=== PATIENT | female | born 1975 | race Caucasian/White ===

== ENCOUNTER 2022-03-16 13:50 | Inpatient (IN) | payer MEDICAID ==
[~2022-03-16] VITALS: Ht 160 cm; Wt 73.5 kg
--- NOTE | 2022-03-16 14:10 | NUR ---
RECEIVED PT 47 YRS FEMALE CAME BY AI FOR NEW oncent of TOM during transfer to [facility] HD catheter on RT subclevian
--- NOTE | 2022-03-16 14:10 | NUR ---
PT HX TRACH conected to me[place] vent sitting TV 550 AC 16/MIN FIO2 40% PEEP 5 Tolorated will
--- NOTE | 2022-03-16 14:15 | NUR ---
INcerted mayda dominguez 20 blood drow and sent to lab
--- NOTE | 2022-03-16 14:30 | NUR ---
COVID SWAB SENT TO LAB
--- NOTE | 2022-03-16 14:35 | NUR ---
MRSA SENT TO LAB
--- NOTE | 2022-03-16 14:40 | NUR ---
SUCTION DONE thick with secration
[2022-03-16 14:54] LABS: BASOPHILS % (AUTO) 0.4 % (0.0-2.0); EOSINOPHILS % (AUTO) 4.9 % (0.0-6.0); HEMATOCRIT 33 % (33-45); HEMOGLOBIN 10.9 g/dL (11.5-14.8); LYMPHOCYTES # (AUTO) 1.2 K/uL (0.8-4.8); LYMPHOCYTES % (AUTO) 15.2 % (20.0-44.0); MEAN CORPUSCULAR HGB CONC 33 g/dl (31.0-36.0); MEAN CORPUSCULAR VOLUME 89 fL (82-100); MONOCYTES # (AUTO) 0.5 K/uL (0.1-1.30); MONOCYTES % (AUTO) 6.7 % (2.0-12.0); NEUTROPHILS # (AUTO) 5.8 K/uL (1.8-8.9); NEUTROPHILS % (AUTO) 72.8 % (43.0-81.0); PLATELET COUNT (AUTO) 144 K/uL (150-450); RED BLOOD CELL COUNT(AUTO) 3.69 MIL/uL (4.0-5.2)
[2022-03-16] MEDS ORDERED: LEVETIRACETAM (500MG) 1,000 MG in IV NS 0.9% 100 ML IV ONE (15:00)
[2022-03-16] MEDS ORDERED: LEVETIRACETAM (500MG) 1,000 MG in IV NS 0.9% 100 ML IV SCH (15:00)
--- NOTE | 2022-03-16 15:00 | NUR ---
TO CT SCAN OF head accompany by RT
[2022-03-16 15:11] LABS: ALANINE AMINOTRANSFERASE 25 U/L (12-78); ALBUMIN 3.9 g/dL (3.4-5.0); ALCOHOL, BLOOD < 3 mg/dL (0-0); ALKALINE PHOSPHATASE 303 U/L (46-116); ASPARTATE AMINOTRANSFERASE 18 U/L (15-37); BILIRUBIN,DIRECT 0.2 mg/dL (0.0-0.2); BILIRUBIN,TOTAL 0.5 mg/dL (0.2-1.0); CALCIUM, SERUM 9.4 mg/dL (8.5-10.1); CARBON DIOXIDE 23 mmol/L (21-32); CHLORIDE 94 mmol/L (98-107); CREATININE 4.9 mg/dL (0.6-1.3); GLUCOSE 182 mg/dL (74-106); POTASSIUM 5.9 mmol/L (3.5-5.1); SODIUM SERUM 133 mmol/L (136-145); TOTAL PROTEIN, SERUM 7.7 g/dL (6.4-8.2)
--- NOTE | 2022-03-16 15:30 | NUR ---
URINE DRUGE SENT TO LAB
[2022-03-16 15:47] LABS: UREA NITROGEN, BLOOD 87 mg/dL (7-18)
[2022-03-16] MEDS ORDERED: INSULIN REGULAR, HUMAN 100 UNIT/ML 10 ML VIAL IV ONE (16:00)
[2022-03-16] MEDS ORDERED: IV NS 0.9% 1,000 ML BAG IV ONE (16:00)
[2022-03-16] MEDS ORDERED: DEXTROSE 50%-WATER 50 ML DISP.SYRIN IV ONE (16:00)
[2022-03-16] MEDS ORDERED: CALCIUM CHLORIDE 1,000 MG/10 ML DISP.SYRIN IV ONE (16:00)
[2022-03-16] MEDS ORDERED: CALCIUM CHLORIDE 1,000 MG/10 ML DISP.SYRIN ONE (16:31)
[2022-03-16] MEDS ORDERED: DEXTROSE 50%-WATER 50 ML DISP.SYRIN ONE (16:31)
[2022-03-16] MEDS ORDERED: INSULIN REGULAR, HUMAN 100 UNIT/ML 10 ML VIAL ONE (16:32)
--- NOTE | 2022-03-16 16:54 | NUR ---
NO ACTIVE SZ AT THIS TIME CONTENUE monitering pt
[2022-03-16] MEDS ORDERED: INSU100V7 SQ (17:01)
[2022-03-16] MEDS ORDERED: POLY17PO4 GT (17:01)
[2022-03-16] MEDS ORDERED: IPRA3AMP23 IH (17:01)
[2022-03-16] MEDS ORDERED: NUT.237L67 GT (17:01)
[2022-03-16] MEDS ORDERED: INSU100V27 SQ (17:01)
[2022-03-16] MEDS ORDERED: CLON0.1T GT (17:01)
[2022-03-16] MEDS ORDERED: BISA10SU11 RC (17:01)
[2022-03-16] MEDS ORDERED: SODI1TAB66 GT (17:01)
[2022-03-16] MEDS ORDERED: FERR300L GT (17:01)
[2022-03-16] MEDS ORDERED: SODI1POW44 GT (17:01)
[2022-03-16] MEDS ORDERED: DOCU50LI GT (17:01)
[2022-03-16] MEDS ORDERED: ATOR40TA GT (17:01)
[2022-03-16] MEDS ORDERED: DILT30TA14 GT (17:01)
[2022-03-16] MEDS ORDERED: TOBR40VI2 HHN (17:01)
[2022-03-16] MEDS ORDERED: LANS30CA56 GT (17:13)
[2022-03-16] MEDS ORDERED: HYDR100T27 GT (17:13)
[2022-03-16] MEDS ORDERED: FOLI0.8T2 GT (17:13)
[2022-03-16] MEDS ORDERED: DOXY100C2 GT (17:13)
[2022-03-16] MEDS ORDERED: IPRA0.2S9 IH (17:13)
[2022-03-16] MEDS ORDERED: NITR0.4T48 SL (17:13)
[2022-03-16] MEDS ORDERED: MIDO5TAB4 GT (17:13)
[2022-03-16] MEDS ORDERED: NA P133E RC (17:13)
[2022-03-16] MEDS ORDERED: CARV25TA GT (17:13)
[2022-03-16] MEDS ORDERED: LEVO500T90 GT (17:13)
[2022-03-16] MEDS ORDERED: SPIR25TA6 GT (17:13)
[2022-03-16] MEDS ORDERED: AMLO-213 GT (17:13)
[2022-03-16] MEDS ORDERED: ACET-868 GT (17:13)
--- NOTE | 2022-03-16 18:51 | NUR ---
DR. RETANA NOTEFYED ABOUT BP 178/83MMHG wating for PT [id number] CALL Back
[2022-03-16] MEDS ORDERED: LORAZEPAM INJ 2 MG/ML VIAL IV PRN (19:00)
[2022-03-16] MEDS ORDERED: MAGNESIUM HYDROXIDE 30 ML UDC PO PRN (19:00)
[2022-03-16] MEDS ORDERED: NA PHOS,M-B/NA PHOS,DI-BA 1 EA ENEMA RC PRN (19:00)
[2022-03-16] MEDS ORDERED: ONDANSETRON HCL/PF 4 MG/2 ML VIAL IVP PRN (19:00)
[2022-03-16] MEDS ORDERED: DILTIAZEM HCL 30 MG TABLET GT PRN (19:00)
[2022-03-16] MEDS ORDERED: MIDODRINE HCL (5MG) 5 MG TABLET GT PRN (19:00)
[2022-03-16] MEDS ORDERED: NITROGLYCERIN 0.4 MG/TAB BOTTLE SL PRN (19:00)
[2022-03-16] MEDS ORDERED: DOCUSATE SODIUM LIQ 100 MG/10 ML UDC GT PRN (19:00)
[2022-03-16] MEDS ORDERED: BISACODYL SUPP (10 MG) 10 MG/SUPP.RECT SUPP.RECT RC PRN (19:00)
[2022-03-16] MEDS ORDERED: DEXTROSE 50%-WATER 50 ML DISP.SYRIN IV PRN (19:00)
[2022-03-16] MEDS ORDERED: MAG HYDROX/AL HYDROX/SIMETH 30 ML UDC PO PRN (19:00)
[2022-03-16] MEDS ORDERED: Z GUARD REMEDY 4 OZ OINT TP PRN (19:00)
--- NOTE | 2022-03-16 19:35 | NUR ---
HAND OFF IRON MITCHELL
--- NOTE | 2022-03-16 19:50 | NUR ---
RECEIVED REPORT FROM TARA MITCHELL
--- NOTE | 2022-03-16 19:56 | NUR ---
REPORT GIVEN TO GREGORIA
--- NOTE | 2022-03-16 20:23 | NUR ---
CHANNEL PROCESS SUPERVISOR NOTE RECEIVED PT FROM ER VIA ANDREA, PT OBTUNDED, [facility], TOLERATING SETTINGS WELL, NO S/S OF ACUTE DISTRESS, TELE MONITOR READING SR IN THE 80'S, IV ACCESS ON LH #20, INTACT AND PATENT, G TUBE INTACT AND PATENT, 60ML OF RESIDUAL NOTED, NO CURRENT FEEDING. SKIN INTACT, NO WOUNDS OR BRUISES NOTED, BO CATHETER DRAINING CLEAR YELLOW URINE, ALL SAFETY MEASURE BED LOWEST LOCKED POSITION, BED LIGHT WITHIN REACH, WILL CONTINUE TO MONITOR THROUGH OUT SHIFT.
[2022-03-16 20:30] VITALS: BP 175/77
[2022-03-16] MEDS: PANTOPRAZOLE 40 MG TABLET.DR PO SCH ×2 (21:00→22:02)
[2022-03-16] MEDS: CARVEDILOL 12.5 MG TABLET GT SCH (21:00)
[2022-03-16] MEDS: CLONIDINE HCL 0.1 MG TABLET GT SCH (21:00)
[2022-03-16] MEDS: ALBUTEROL FS 2.5 MG/3 ML VIAL.NEB NEB SCH ×2 (21:00→23:08)
--- NOTE | 2022-03-16 21:00 | NUR ---
RN NOTE PATIENT HAS AN ORDER FOR STAT DIALYSIS. BOTH BP MEDS WERE HELD. CATAPRES AND COREG. PROTONIX WAS HELD DUE TO IT BEING A DELAYED RELEASE CAN NOT BE CRUSHED. PATIENT IS NPO, G TUBE FEEDING.
--- NOTE | 2022-03-16 21:56 | NUR ---
RT NOTE WILL ADMINISTER NEBULIZED TX AT SCHEDULED FREQUENCY. NO RESPIRATORY DISTRESS NOTED.
[2022-03-16] MEDS: LEVETIRACETAM (500MG) 500 MG in IV NS 0.9% 100 ML IV SCH (21:58)
[2022-03-16] MEDS: ATORVASTATIN 40 MG TABLET GT SCH (21:59)
[2022-03-16] MEDS: BLOOD SUGAR DIAGNOSTIC 1 EACH STRIP VI SCH (22:20)
[2022-03-16] MEDS: *INSULIN REGULAR(HUMULIN R)HUM 100 UNIT/ML VIAL SQ PRN (22:26)
--- NOTE | 2022-03-16 23:00 | NUR ---
2300 called [facility] Radha Congregate to obtain family member phone number for consent for Hemodialysis, spoke with Bernardo he said he will fax facesheet.
--- NOTE | 2022-03-16 23:15 | NUR ---
4548 PAULA Willson called facility again to follow up on facesheet for family contact number, she spoke with Bernardo again, he said he e faxed document and will re fax again.
--- NOTE | 2022-03-16 23:25 | NUR ---
2330 Called patient's Chris Holcomb at [phone] and obtained Hemodialysis consent via [place] speaking nurse.
[2022-03-17] VITALS: BP 194/95
[2022-03-17] MEDS ORDERED: SODIUM CHLORIDE 1000 MG TABLET GT SCH
--- NOTE | 2022-03-17 | NUR ---
RN NOTE HELD PATIENTS HYDRALAZINE 50MG. PATIENT CURRENTLY RECEIVING DIALYSIS.
[2022-03-17] MEDS: IPRATROPIUM NEB FS 0.5 MG/2.5 ML AMPUL.NEB IH SCH ×5 (01:46→20:06)
--- NOTE | 2022-03-17 02:00 | NUR ---
RN NOTE DIALYSIS REMOVED 2 LITERS
[2022-03-17] MEDS: ALBUTEROL FS 2.5 MG/3 ML VIAL.NEB NEB SCH ×2 (03:15→08:05)
[2022-03-17 04:00] VITALS: BP 188/82
[2022-03-17] MEDS: CLONIDINE HCL 0.1 MG TABLET GT SCH ×3 (04:41→21:47)
--- NOTE | 2022-03-17 04:50 | NUR ---
RN NOTE DR. GONZALEZ ORDERED A PRN HYDRALAZINE 10MG. FOR PT 188/82 BP
[2022-03-17] MEDS: hydrALAZINE HCL IV 20 MG VIAL IV PRN (05:15)
--- NOTE | 2022-03-17 06:46 | NUR ---
AVIATION TECHNICIAN AIRCRAFT CLOSING NOTE PT ASLEEP IN BED, EASILY AROUSABLE, PT OBTUNDED, ON MECH VENT, TOLERATING SETTINGS WELL, NO S/S OF ACUTE DISTRESS, TELE MONITOR READING SR HR 93, IV ACCESS ON RH #20, INTACT AND PATENT, S/L, G TUBE INTACT AND PATENT, NO RESIDUAL NOTED, NO CURRENT FEEDING. BO CATHETER DRAINING CLEAR YELLOW URINE, ALL DUE MEDS GIVEN. ALL SAFETY MEASURE BED LOWEST LOCKED POSITION, BED LIGHT WITHIN REACH, WILL ENDORSE TO MORNING SHIFT FOR CONTINUOUS CARE
[2022-03-17 07:06] LABS: CALCIUM, SERUM 9.9 mg/dL (8.5-10.1); CREATININE 3.5 mg/dL (0.6-1.3); MAGNESIUM 2.6 mg/dL (1.8-2.4); PHOSPHORUS 4.6 mg/dL (2.5-4.9); POTASSIUM 4.9 mmol/L (3.5-5.1)
[2022-03-17 07:12] LABS: BASOPHILS % (AUTO) 0.2 % (0.0-2.0); EOSINOPHILS % (AUTO) 0.7 % (0.0-6.0); HEMATOCRIT 31 % (33-45); HEMOGLOBIN 10.3 g/dL (11.5-14.8); LYMPHOCYTES # (AUTO) 0.8 K/uL (0.8-4.8); LYMPHOCYTES % (AUTO) 9.4 % (20.0-44.0); MEAN CORPUSCULAR HGB CONC 33 g/dl (31.0-36.0); MEAN CORPUSCULAR VOLUME 90 fL (82-100); MONOCYTES # (AUTO) 0.5 K/uL (0.1-1.30); MONOCYTES % (AUTO) 6.1 % (2.0-12.0); NEUTROPHILS # (AUTO) 6.7 K/uL (1.8-8.9); NEUTROPHILS % (AUTO) 83.6 % (43.0-81.0); PLATELET COUNT (AUTO) 143 K/uL (150-450); RED BLOOD CELL COUNT(AUTO) 3.47 MIL/uL (4.0-5.2)
[2022-03-17 08:00] VITALS: BP 173/78
--- NOTE | 2022-03-17 08:00 | NUR ---
SHAKE OUT WORKER OPENING NOTE PT IN BED, EASILY AROUSABLE, OBTUNDED, ON MECH VENT, TOLERATING SETTINGS WELL, NO S/S OF ACUTE DISTRESS, TELE MONITOR READING SR HR 96, IV ACCESS ON RH #20, INTACT AND PATENT, S/L, G TUBE INTACT AND PATENT, NO RESIDUAL NOTED, NO CURRENT FEEDING. BO CATHETER DRAINING CLEAR YELLOW URINE. ALL SAFETY MEASURE BED LOWEST LOCKED POSITION, BED LIGHT WITHIN REACH, WILL CONTINUE TO MONITOR THROUGHOUT SHIFT.
[2022-03-17] MEDS: BLOOD SUGAR DIAGNOSTIC 1 EACH STRIP VI SCH ×4 (08:19→22:11)
[2022-03-17] MEDS: LEVETIRACETAM (500MG) 500 MG in IV NS 0.9% 100 ML IV SCH ×2 (08:20→21:46)
[2022-03-17] MEDS: POLYETHYLENE GLYCOL 3350 17 GM POWD.PACK GT SCH (08:20)
[2022-03-17] MEDS: AMLODIPINE BESYLATE 10 MG TABLET GT SCH (08:21)
[2022-03-17] MEDS: CARVEDILOL 12.5 MG TABLET GT SCH ×2 (08:21→21:51)
[2022-03-17] MEDS: ACETAMINOPHEN 325 MG TABLET PO PRN ×2 (08:22→17:18)
[2022-03-17] MEDS: VIT B CMPLX 3/FA/VIT C/BIOTIN 1 TAB TABLET GT SCH (08:22)
[2022-03-17] MEDS: SPIRONOLACTONE 25 MG TABLET GT SCH (08:22)
[2022-03-17] MEDS: FERROUS SULFATE UDC 300 MG/5 ML UDC GT SCH ×2 (08:22→17:15)
[2022-03-17] MEDS: NEUTRA PHOS 1 POWD.PACKET GT SCH (08:22)
[2022-03-17] MEDS: hydrALAZINE HCL 50 MG TABLET GT SCH ×4 (08:23→17:16)
[2022-03-17] MEDS: PANTOPRAZOLE 40 MG TABLET.DR PO SCH ×2 (08:25→21:00)
[2022-03-17] MEDS ORDERED: ALBUTEROL FS 2.5 MG/3 ML VIAL.NEB NEB SCH (10:30)
[2022-03-17 12:00] VITALS: BP 163/83
[2022-03-17] MEDS: NEPRO 1,000 ML BOTTLE GT SCH (13:41)
[2022-03-17] MEDS: *INSULIN REGULAR(HUMULIN R)HUM 100 UNIT/ML VIAL SQ PRN ×2 (14:01→22:13)
[2022-03-17] MEDS: ALBUTEROL HALF STRENGTH 1.25 MG/3 ML VIAL.NEB NEB SCH ×2 (14:21→20:06)
[2022-03-17 16:00] VITALS: BP 149/74
[2022-03-17] MEDS: HEPARIN SODIUM, PORCINE 5000 UNITS/1 ML VIAL SQ SCH (17:18)
[2022-03-17 20:00] VITALS: BP 161/86
--- NOTE | 2022-03-17 20:30 | NUR ---
RESIDENT DIRECTOR CLOSING NOTE PT IN BED, OBTUNDED, ON MECH VENT, TOLERATING SETTINGS WELL, NO S/S OF ACUTE DISTRESS OR SOB. TELE MONITOR READING SR HR 84, IV ACCESS ON RH #20, INTACT AND PATENT, S/L, G TUBE INTACT AND PATENT, NO RESIDUAL NOTED, CURRENTLY ON NEPRO AT 55CC/HR, TOLERATING WELL. BO CATHETER DRAINING CLEAR YELLOW URINE. ALL SAFETY MEASURE BED LOWEST LOCKED POSITION, BED LIGHT WITHIN REACH, WILL ENDORSE CONTINUITY OF CARE TO PATIENT PORTAL CONCIERGE
[2022-03-17] MEDS: ATORVASTATIN 40 MG TABLET GT SCH (21:47)
[2022-03-17] MEDS: PANTOPRAZOLE 40 MG/PACK PACK GT SCH (22:44)
--- NOTE | 2022-03-17 23:17 | NUR ---
CONSTRUCTION DRILLER OPENING NOTE RECEIVED PT ASLEEP IN BED, EASILY AROUSABLE, PT OBTUNDED, ON MECH VENT, TOLERATING SETTINGS WELL, NO S/S OF ACUTE DISTRESS, TELE MONITOR READING SR HR 77, IV ACCESS ON RH #20, INTACT AND PATENT, S/L, G TUBE INTACT AND PATENT, NO RESIDUAL NOTED, RUNNING NEPHRO@55ML/HR. BO CATHETER DRAINING CLEAR YELLOW URINE. PT HAS COOLING MEASURES IN PLACE. ALL SAFETY MEASURE BED LOWEST LOCKED POSITION, BED LIGHT WITHIN REACH, WILL CONTINUE TO MONITOR THROUGHOUT SHIFT.
[2022-03-18] VITALS (7 sets, daily range): BP systolic 147–177; BP diastolic 68–86
--- NOTE | 2022-03-18 00:50 | NUR ---
LILA RN NOTE PATIENTS HR HAS DROPPED DOWN TO 38 A FEW TIMES AND GOES BACK TO HIGH 40'S - LOW 50'S. DR GONZALEZ SAID IF IT HAPPENED AGAIN GET A STAT EKG AND TEXT THE RESULTS Addendum: 03/18/22 at 0059 by GREGORIA WARNER RN WRONG PATIENT
[2022-03-18] MEDS: IPRATROPIUM NEB FS 0.5 MG/2.5 ML AMPUL.NEB IH SCH ×4 (01:46→20:19)
[2022-03-18] MEDS: ALBUTEROL HALF STRENGTH 1.25 MG/3 ML VIAL.NEB NEB SCH ×4 (01:46→20:19)
[2022-03-18] MEDS: CLONIDINE HCL 0.1 MG TABLET GT SCH ×3 (05:00→21:13)
--- NOTE | 2022-03-18 05:45 | NUR ---
TERMINAL OPERATIONS MANAGER NOTE CATAPRES WAS NOT ADMINISTERED DUE TO PATIENT CURRENTLY GETTING DIALYSIS
--- NOTE | 2022-03-18 07:01 | NUR ---
INDEXER CLOSING NOTE PT ASLEEP IN BED, EASILY AROUSABLE, PT OBTUNDED, ON MECH VENT, TOLERATING SETTINGS WELL, NO S/S OF ACUTE DISTRESS, TELE MONITOR READING SR HR 90'S. IV ACCESS ON RH #20, INTACT AND PATENT, S/L, G TUBE INTACT AND PATENT, BO CATHETER DRAINING CLEAR YELLOW URINE, PATIENT CURRENTLY RECEIVING DIALYSIS. ALL DUE MEDS GIVEN. ALL SAFETY MEASURE BED LOWEST LOCKED POSITION, BED LIGHT WITHIN REACH, WILL ENDORSE TO MORNING SHIFT FOR CONTINUOUS CARE
--- NOTE | 2022-03-18 07:12 | NUR ---
HOSPITALITY HOUSEKEEPER OPENING NOTE RECEIVED PT ASLEEP IN BED, EASILY AROUSABLE, PT OBTUNDED, ON MECH VENT, TOLERATING SETTINGS WELL, NO S/S OF ACUTE DISTRESS, TELE MONITOR READING SR HR 77, IV ACCESS ON RH #20, INTACT AND PATENT, S/L, G TUBE INTACT AND PATENT, NO RESIDUAL NOTED, RUNNING NEPHRO@55ML/HR. BO CATHETER DRAINING CLEAR YELLOW URINE. CURRENTLY RECEIVING HEMODIALYSIS ALL SAFETY MEASURE BED LOWEST LOCKED POSITION, BED LIGHT WITHIN REACH, WILL CONTINUE TO MONITOR THROUGHOUT SHIFT.
[2022-03-18] MEDS: BLOOD SUGAR DIAGNOSTIC 1 EACH STRIP VI SCH ×4 (07:45→21:24)
[2022-03-18] MEDS: INSULIN REGULAR, HUMAN 100 UNIT/ML 3 ML VIAL SQ PRN ×3 (07:48→18:05)
[2022-03-18] MEDS: SPIRONOLACTONE 25 MG TABLET GT SCH (08:57)
[2022-03-18] MEDS: LEVETIRACETAM (500MG) 500 MG in IV NS 0.9% 100 ML IV SCH (08:57)
[2022-03-18] MEDS: FERROUS SULFATE UDC 300 MG/5 ML UDC GT SCH ×2 (08:57→17:28)
[2022-03-18] MEDS: POLYETHYLENE GLYCOL 3350 17 GM POWD.PACK GT SCH (08:58)
[2022-03-18] MEDS: CARVEDILOL 12.5 MG TABLET GT SCH ×2 (08:58→21:14)
[2022-03-18] MEDS: hydrALAZINE HCL 50 MG TABLET GT SCH ×3 (08:58→17:27)
[2022-03-18] MEDS: AMLODIPINE BESYLATE 10 MG TABLET GT SCH (08:59)
[2022-03-18] MEDS: HEPARIN SODIUM, PORCINE 5000 UNITS/1 ML VIAL SQ SCH ×2 (09:01→17:28)
[2022-03-18] MEDS: NEUTRA PHOS 1 POWD.PACKET GT SCH (09:04)
[2022-03-18] MEDS: VIT B CMPLX 3/FA/VIT C/BIOTIN 1 TAB TABLET GT SCH (09:05)
[2022-03-18] MEDS: PANTOPRAZOLE 40 MG/PACK PACK GT SCH ×2 (09:06→21:13)
--- NOTE | 2022-03-18 18:25 | NUR ---
RN CLOSING NOTES PT IS RESTING IN BED, PT IS OBTUNDED. PT ON ORDERED VENT SETTINGS SATING AT 99%. BO INTACT AND DRAINING. GT FEEDING RUNNING AT 55ML/HR. IV ACCESS NOTED AT R HAND 20 G. ALL SAFETY MEASURES IN PLACE, FALL AND SEIZURE PRECAUTIONS IN PLACE, WILL ENDORSE TO WATER CONSERVATIONIST RN FOR AFUA.
--- NOTE | 2022-03-18 19:10 | NUR ---
RN NOTES RECEIVED PT FOR CONTINUITY OF CARE. PATIENT A/OX0 IN NO S/SX OF ACUTE DISTRESS AT THIS TIME; CURRENTLY ON MECHANICAL VENT; SETTING PRESCRIBED, WITH 02 SAT >95% AT THIS TIME. WITH IV ACCESS ON L HAND #24 AND R HAND #20 BOTH PATENT, INTACT AND FLUSHING WELL. GTUBE FEEDING RUNNING PRESCRIBED. WILL ENSURE SAFETY MEASURES WITHIN THE SHIFT. PATIENT BED ALARM IS ON. HEAD OF BED ELEVATED. BED IS LOCKED, IN LOWEST POSITION AND SIDE RAILS UP. CALL LIGHT WITHIN REACH OF THE PATIENT.WILL CONTINUE TO MONITOR AND REASSESS FOR ANY CHANGES AND WILL CARRY OUT ANY ONGOING AND ACTIVE MD ORDER.
[2022-03-18] MEDS: hydrALAZINE HCL IV 20 MG VIAL IV PRN (19:45)
[2022-03-18] MEDS: ACETAMINOPHEN 325 MG TABLET PO PRN (19:45)
[2022-03-18] MEDS: ATORVASTATIN 40 MG TABLET GT SCH (21:12)
[2022-03-18] MEDS: LEVETIRACETAM SOL (5 ML) 100 MG/ML UDC GT SCH (21:13)
[2022-03-18] MEDS: *INSULIN REGULAR(HUMULIN R)HUM 100 UNIT/ML VIAL SQ PRN (21:39)
[2022-03-19] VITALS: BP 158/69
[2022-03-19] MEDS: ALBUTEROL HALF STRENGTH 1.25 MG/3 ML VIAL.NEB NEB SCH ×4 (01:57→20:04)
[2022-03-19] MEDS: IPRATROPIUM NEB FS 0.5 MG/2.5 ML AMPUL.NEB IH SCH ×4 (01:57→20:04)
[2022-03-19 04:00] VITALS: BP 124/69
--- NOTE | 2022-03-19 04:00 | NUR ---
RN NOTES PATIENT REMAINED TO BE IN NO SIGNS OF ACUTE RESPIRATORY DISTRESS , VITAL SIGNS STABLE AT THIS TIME. REGULAR TURNING AND REPOSITIONING DONE Q2H AND SUCTIONING RENDERED. AM PATIENT CARE DONE. WILL CONTINUE TO MONITOR AND REASSESS FOR ANY CHANGES THROUGHOUT THE SHIFT.
[2022-03-19] MEDS: CLONIDINE HCL 0.1 MG TABLET GT SCH ×3 (04:31→21:50)
--- NOTE | 2022-03-19 06:35 | NUR ---
RN CLOSING NOTE: PATIENT REMAINS IN ROOM IN NO SIGNS OF RESPIRATORY DISTRESS, PATIENT STILL ON MECH VENT; SETTINGS PRESCRIBED;TOLERATING WELL SATURATING @ >95% SP02. SAFETY MEASURES IMPLEMENTED, BED IN LOWEST POSITION, LOCKED, SIDE RAILS UP, CALL LIGHT WITHIN REACH. ALL NEEDS AND ORDERS ADDRESSED DURING THE SHIFT. IV ACCESS MAINTAINED INTACT, SECURED AND FLUSHING WELL. ALL DUE MEDS GIVEN ORDERED & SCHEDULED ; PATIENT TOLERATED WELL. PATIENT KEPT CLEAN AND COMFORTABLE WITHIN THE SHIFT. PATIENT ENDORSED TO INCOMING SHIFT RN WITH STABLE VITAL SIGN AND FOR CONTINUITY OF CARE.
--- NOTE | 2022-03-19 07:28 | NUR ---
ADMITTING CLERK OPENING NOTES: RECEIVED PATIENT IN BED ASLEEP BUT EASILY AROUSES TO VOICE AND TOUCH. PATIENT IS OBTUNDED AND IS ON MECHANICAL VENT SHILEY #8 WITH VENT SETTING FOLLOWS: AC 16, TV 550, FI02 30%, PEEP 5. BREATHING EVEN AND UNLABORED WITH OXYGEN SATURATION OF 100%. ON SR ON TELE MONITOR READING WITH HR OF 61. PATIENT HAS SALINE LOCK ON RIGHT HAND #20, INTACT AND PATENT, FLUSHES WELL. G TUBE INTACT AND PATENT, IN PLACE, NO RESIDUAL NOTED, WITH NEPHRO RUNNING @ 55ML/HR X [address] IN PL[address], DRAINING WITH CLEAR YELLOW URINE. BED LOCKED AND IN LOWEST LOCKED POSITION, CALL LIGHT WITHIN REACH, HOB KEPT ELEVATED. ALL SAFETY MEASURES IN PLACE. WILL CONTINUE TO MONITOR THROUGHOUT SHIFT.
[2022-03-19] MEDS: BLOOD SUGAR DIAGNOSTIC 1 EACH STRIP VI SCH ×4 (07:50→21:57)
[2022-03-19 08:00] VITALS: BP 141/71
[2022-03-19] MEDS: INSULIN REGULAR, HUMAN 100 UNIT/ML 3 ML VIAL SQ PRN ×3 (08:13→17:33)
[2022-03-19] MEDS: CARVEDILOL 12.5 MG TABLET GT SCH ×2 (09:12→21:49)
[2022-03-19] MEDS: PANTOPRAZOLE 40 MG/PACK PACK GT SCH ×2 (09:13→21:49)
[2022-03-19] MEDS: NEUTRA PHOS 1 POWD.PACKET GT SCH (09:13)
[2022-03-19] MEDS: VIT B CMPLX 3/FA/VIT C/BIOTIN 1 TAB TABLET GT SCH (09:13)
[2022-03-19] MEDS: SPIRONOLACTONE 25 MG TABLET GT SCH (09:13)
[2022-03-19] MEDS: hydrALAZINE HCL 50 MG TABLET GT SCH ×3 (09:14→17:44)
[2022-03-19] MEDS: FERROUS SULFATE UDC 300 MG/5 ML UDC GT SCH ×2 (09:14→17:45)
[2022-03-19] MEDS: LEVETIRACETAM SOL (5 ML) 100 MG/ML UDC GT SCH ×2 (09:14→21:49)
[2022-03-19] MEDS: AMLODIPINE BESYLATE 10 MG TABLET GT SCH (09:14)
[2022-03-19] MEDS: POLYETHYLENE GLYCOL 3350 17 GM POWD.PACK GT SCH (09:15)
[2022-03-19] MEDS: HEPARIN SODIUM, PORCINE 5000 UNITS/1 ML VIAL SQ SCH ×2 (09:15→17:46)
[2022-03-19] MEDS ORDERED: LEVE100S GT (10:10)
[2022-03-19 12:00] VITALS: BP 136/61
[2022-03-19 16:00] VITALS: BP 146/69
--- NOTE | 2022-03-19 18:52 | NUR ---
TEL;E RN CLOSING NOTES: PATIENT IN BED ASLEEP BUT EASILY AROUSES TO VOICE AND TOUCH. PATIENT IS OBTUNDED BUT ABLE TO FOLLOW WITH HER EYES WHEN CALLED BY NAME. PATIENT IS ON MECHANICAL VENT SHILEY #8 WITH VENT SETTING FOLLOWS: AC 16, TV 550, FI02 30%, PEEP 5. NO RESPIRATORY DISTRESS NOTED WITH OXYGEN SATURATION OF 100%. ON SR ON TELE MONITOR READING WITH HR OF 75. PATIENT HAS SALINE LOCKS ON RIGHT HAND #20, AND LEFT HAND # 22, BOTH INTACT, PATENT, FLUSHES WELL. G TUBE INTACT, PATENT, IN PLACE, NO RESIDUAL NOTED, WITH NEPHRO RUNNING @ 55ML/HR AT THIS TIME. BO CATHETER IN PLACE, EMPTIED 225 ML OF CLEAR YELLOW URINE. BED LOCKED AND IN LOWEST LOCKED POSITION, CALL LIGHT WITHIN REACH, HOB KEPT ELEVATED. ALL NEEDS MET AND ANTICIPATED. WILL ENDORSE TO NEXT SHIFT NURSE FOR CONTINUOUS MONITORING.
[2022-03-19] MEDS: NEPRO 1,000 ML BOTTLE GT SCH (18:59)
--- NOTE | 2022-03-19 19:15 | NUR ---
RN NOTES RECEIVED PT FOR CONTINUITY OF CARE. PATIENT A/OX0 IN NO S/SX OF ACUTE DISTRESS AT THIS TIME; CURRENTLY ON MECHANICAL VENT; SETTING PRESCRIBED, WITH 02 SAT >95% AT THIS TIME. WITH IV ACCESS ON L HAND #24 AND R HAND #20 BOTH PATENT, INTACT AND FLUSHING WELL. GTUBE FEEDING RUNNING PRESCRIBED. ALSO HAS R CW HD CATH SECURED AND INTACT. WILL ENSURE SAFETY MEASURES WITHIN THE SHIFT. PATIENT BED ALARM IS ON. HEAD OF BED ELEVATED. BED IS LOCKED, IN LOWEST POSITION AND SIDE RAILS UP. CALL LIGHT WITHIN REACH OF THE PATIENT.WILL CONTINUE TO MONITOR AND REASSESS FOR ANY CHANGES AND WILL CARRY OUT ANY ONGOING AND ACTIVE MD ORDER.
[2022-03-19 20:00] VITALS: BP 152/69
[2022-03-19] MEDS: ATORVASTATIN 40 MG TABLET GT SCH (21:54)
[2022-03-19] MEDS: *INSULIN REGULAR(HUMULIN R)HUM 100 UNIT/ML VIAL SQ PRN (21:58)
[2022-03-20] VITALS: BP 149/64
[2022-03-20] MEDS: ALBUTEROL HALF STRENGTH 1.25 MG/3 ML VIAL.NEB NEB SCH ×3 (00:59→13:35)
[2022-03-20] MEDS: IPRATROPIUM NEB FS 0.5 MG/2.5 ML AMPUL.NEB IH SCH ×3 (00:59→13:35)
[2022-03-20 04:00] VITALS: BP 125/68
[2022-03-20] MEDS: CLONIDINE HCL 0.1 MG TABLET GT SCH ×2 (04:42→12:24)
[2022-03-20 08:00] VITALS: BP 162/74
--- NOTE | 2022-03-20 08:08 | NUR ---
RN OPENING NOTE PATIENT RECEIVED IN BED, OBTUNDED, ABLE TO RESPONDS PHYSICAL STIMULI. IN NO ACUTE DISTRESS NOTED. RESPIRATORY EVEN AND UNLABORED ON VENTILATOR. RUNNING NEPHRO AND DISCONNECTED SCHEDULE, WILL RECONNECT AT 1400. SKIN IS WARM TO TOUCH, KEEP CLEAN/DRY. KEPT ELEVATED HOB FOR ENSURE AIRWAY AND ASPIRATION PRECAUTION, ALSO LOWEST POSITION OF THE BED, S/R UP X 2, BED ALARM IS ON AT ALL THE TIMES. ALL SAFETY PRECAUTION APPLIED. CALL LIGHT WITHIN REACH, WILL CONTINUE TO MONITOR.
[2022-03-20] MEDS: AMLODIPINE BESYLATE 10 MG TABLET GT SCH (09:00)
[2022-03-20] MEDS: SPIRONOLACTONE 25 MG TABLET GT SCH (09:00)
[2022-03-20] MEDS: CARVEDILOL 12.5 MG TABLET GT SCH (09:00)
[2022-03-20] MEDS: hydrALAZINE HCL 50 MG TABLET GT SCH ×2 (09:00→12:24)
[2022-03-20] MEDS: PANTOPRAZOLE 40 MG/PACK PACK GT SCH (09:09)
[2022-03-20] MEDS: BLOOD SUGAR DIAGNOSTIC 1 EACH STRIP VI SCH ×2 (09:09→12:18)
[2022-03-20] MEDS: VIT B CMPLX 3/FA/VIT C/BIOTIN 1 TAB TABLET GT SCH (09:09)
[2022-03-20] MEDS: FERROUS SULFATE UDC 300 MG/5 ML UDC GT SCH (09:09)
[2022-03-20] MEDS: POLYETHYLENE GLYCOL 3350 17 GM POWD.PACK GT SCH (09:10)
[2022-03-20] MEDS: LEVETIRACETAM SOL (5 ML) 100 MG/ML UDC GT SCH (09:10)
[2022-03-20] MEDS: HEPARIN SODIUM, PORCINE 5000 UNITS/1 ML VIAL SQ SCH (09:13)
[2022-03-20] MEDS: INSULIN REGULAR, HUMAN 100 UNIT/ML 3 ML VIAL SQ PRN ×2 (09:23→12:21)
--- NOTE | 2022-03-20 10:00 | NUR ---
PATIENT D/C TO [facility], GIVEN REPORT WU/TRAFFIC AGENT INCLUDE PIC UP TIME, AND MEDICATION. INFORMED THAT PATIENT LEAVING AFTER HD ALSO.
[2022-03-20 12:00] VITALS: BP 163/76
[2022-03-20] MEDS: NEUTRA PHOS 1 POWD.PACKET GT SCH (12:20)
[2022-03-20 12:24] VITALS: BP 172/74
--- NOTE | 2022-03-20 16:02 | NUR ---
3 data processing equipment repairer PICKED UP PATIENT, GIVEN REPORT INCLUDE 2Ls OUT PUT FROM HD AND ADMINISTERED HYDRALAZINE AND CLONIDINE AFTER HD ALSO. PATIENT IN STABLE CONDITION.
== END 2022-03-20 16:33 | DRG 53 ==
LOC: ER 14:08 → TELE1 19:56
PROVIDERS: ADMIT Internal Medicine; ATTEND Internal Medicine
PROC: 5A1945Z Respiratory Ventilation, 24-96 Consecutive Hours (ICD-10-PCS; principal; 2022-03-16)
PROC: 5A1D70Z Performance of Urinary Filtration, Intermittent, Less than 6 Hours Per Day (ICD-10-PCS; 2022-03-16)
DX: R56.9 Unspecified convulsions (principal); G93.41 Metabolic encephalopathy; J96.10 Chronic respiratory failure, unspecified whether with hypoxia or hypercapnia; I12.0 Hypertensive chronic kidney disease with stage 5 chronic kidney disease or end stage renal disease; E22.2 Syndrome of inappropriate secretion of antidiuretic hormone; G90.8 Other disorders of autonomic nervous system; D63.8 Anemia in other chronic diseases classified elsewhere; N18.6 End stage renal disease; Z86.73 Personal history of transient ischemic attack (TIA), and cerebral infarction without residual deficits; Z99.11 Dependence on respirator [ventilator] status; Z93.0 Tracheostomy status; Z99.2 Dependence on renal dialysis; Z20.822 Contact with and (suspected) exposure to COVID-19; E11.22 Type 2 diabetes mellitus with diabetic chronic kidney disease; Z93.1 Gastrostomy status; Z91.040 Latex allergy status; Z79.51 Long term (current) use of inhaled steroids; Z79.4 Long term (current) use of insulin; Z79.899 Other long term (current) drug therapy; E87.5 Hyperkalemia; G93.89 Other specified disorders of brain; R13.10 Dysphagia, unspecified; E78.5 Hyperlipidemia, unspecified
CPT/HCPCS: 31720; 36415; 70450-TC; 71045-TC; 80048-TC; 80076-TC; 82962-TC; 83735-TC; 84100-TC; 84703-TC; 85025-TC; 86706; 87081-TC; 87340; 90935-TC; 94003-TC; 94760-TC; 94762-TC; 94799-TC; 95819-TC; A7526; C9803; G0378; G0480; J0360; J1644; J1815; J1953; J3490; J7030; J7050; J7070

== ENCOUNTER 2023-01-11 13:47 | Inpatient (IN) | payer MEDICAID, OTHER ==
[~2023-01-11] VITALS: Ht 162.6 cm; Wt 64.0 kg
[~2023-01-11 13:47] MED LIST: ACET-868 GT; AMLO-213 GT; ATOR40TA GT; BISA10SU11 RC; CARV25TA GT; CLON0.1T GT; DILT30TA14 GT; DOCU50LI GT; DOXY100C2 GT; FERR300L GT; FOLI0.8T2 GT; HYDR100T27 GT; INSU100V27 SQ; INSU100V7 SQ; IPRA0.2S9 IH; IPRA3AMP23 IH; LANS30CA56 GT; LEVE100S GT; LEVO500T90 GT; MIDO5TAB4 GT; NA P133E RC; NITR0.4T48 SL; NUT.237L67 GT; POLY17PO4 GT; SODI1POW44 GT; SODI1TAB66 GT; SPIR25TA6 GT; TOBR40VI2 HHN
--- NOTE | 2023-01-11 14:04 | NUR ---
RITA SENT [facility]. VITAL WNL.
--- NOTE | 2023-01-11 14:30 | NUR ---
RITA SENT [facility]. A/OX0 BREATHING IS EVEN AND UNLABORED. VENT TRACH FROM SNF. SNF STATES PT HAD A UPPE RESPIRATORY INFECTION AND IS CURRENTLY TAKING ABX FOR INFECTION. SIDERAILS UP, BED LOCKED IN LOWEST POSITION.
--- NOTE | 2023-01-11 14:45 | NUR ---
BLOOD DRAWN AND SENT TO LAB.
[2023-01-11 15:03] LABS: BASOPHILS # (AUTO) 0.1 K/uL (0.0-0.2); BASOPHILS % (AUTO) 0.7 % (0.0-2.0); EOSINOPHILS % (AUTO) 0.7 % (0.0-6.0); HEMATOCRIT 29 % (33-45); HEMOGLOBIN 9.5 g/dL (11.5-14.8); LYMPHOCYTES # (AUTO) 0.6 K/uL (0.8-4.8); LYMPHOCYTES % (AUTO) 4.7 % (20.0-44.0); MEAN CORPUSCULAR HGB CONC 33 g/dl (31.0-36.0); MEAN CORPUSCULAR VOLUME 96 fL (82-100); MONOCYTES # (AUTO) 0.8 K/uL (0.1-1.30); MONOCYTES % (AUTO) 6.8 % (2.0-12.0); NEUTROPHILS # (AUTO) 10.5 K/uL (1.8-8.9); NEUTROPHILS % (AUTO) 87.1 % (43.0-81.0); PLATELET COUNT (AUTO) 192 K/uL (150-450); RED BLOOD CELL COUNT(AUTO) 3.01 MIL/uL (4.0-5.2); WHITE BLOOD COUNT (AUTO) 12.1 K/uL (4.3-11.0)
--- NOTE | 2023-01-11 15:05 | NUR ---
PT RETURNED FROM CT IN STABLE CONDITION.
[2023-01-11 15:26] LABS: ALANINE AMINOTRANSFERASE 30 U/L (12-78); ALBUMIN 2.6 g/dL (3.4-5.0); ALKALINE PHOSPHATASE 213 U/L (46-116); ASPARTATE AMINOTRANSFERASE 24 U/L (15-37); BILIRUBIN,DIRECT 0.1 mg/dL (0.0-0.2); BILIRUBIN,TOTAL 0.4 mg/dL (0.2-1.0); CALCIUM, SERUM 9.6 mg/dL (8.5-10.1); CARBON DIOXIDE 22 mmol/L (21-32); CHLORIDE 98 mmol/L (98-107); CREATININE 2.7 mg/dL (0.6-1.3); GLUCOSE 284 mg/dL (74-106); LIPASE 116 U/L (73-393); POTASSIUM 3.9 mmol/L (3.5-5.1); SODIUM SERUM 135 mmol/L (136-145); TOTAL PROTEIN, SERUM 7.6 g/dL (6.4-8.2); UREA NITROGEN, BLOOD 37 mg/dL (7-18)
--- NOTE | 2023-01-11 18:24 | NUR ---
PT HAS BO CATHETER INSERTED NO URINE OUTPUT.
--- NOTE | 2023-01-11 20:14 | NUR ---
HANDOFF REPORT GIVEN TO NAINA MITCHELL FOR INPATIENT SERVICES.
[2023-01-11] MEDS ORDERED: Z GUARD REMEDY 4 OZ OINT TP PRN (20:30)
[2023-01-11] MEDS ORDERED: ONDANSETRON HCL/PF 4 MG/2 ML VIAL IVP PRN (20:30)
[2023-01-11] MEDS ORDERED: DEXTROSE 50%-WATER 50 ML DISP.SYRIN IV PRN (20:30)
[2023-01-11] MEDS ORDERED: LORAZEPAM INJ 2 MG/ML VIAL IV PRN (20:30)
[2023-01-11] MEDS ORDERED: MORPHINE SULFATE INJ 2 MG/ML DISP.SYRIN IV PRN (20:30)
[2023-01-11] MEDS ORDERED: ACETAMINOPHEN 650 MG/SUPP.RECT RC PRN (20:30)
[2023-01-11] MEDS ORDERED: MAGNESIUM HYDROXIDE 30 ML UDC PO PRN (20:30)
[2023-01-11] MEDS ORDERED: IPRATROPIUM NEB FS 0.5 MG/2.5 ML AMPUL.NEB NEB PRN (20:30)
[2023-01-11] MEDS ORDERED: ALBUTEROL FS 2.5 MG/3 ML VIAL.NEB NEB PRN (20:30)
[2023-01-11] MEDS ORDERED: MAG HYDROX/AL HYDROX/SIMETH 30 ML UDC PO PRN (20:30)
--- NOTE | 2023-01-11 20:49 | NUR ---
TRANSFERRED TO FIRST FLOOR UNDER ACLS
[2023-01-11 21:00] VITALS: BP 156/77; TEMP 98.4; O2SAT 100
[2023-01-11] MEDS ORDERED: PANTOPRAZOLE 40 MG VIAL IV SCH (21:00)
--- NOTE | 2023-01-11 23:09 | NUR ---
noc rn note- consent obtained telephone consent for paracentesis, Chris Holcomb gave the consent, research methodologist used, Charge nurse Asia translated to the and witnessed with primary RN the consent form. will monitor.
[2023-01-12] VITALS: BP 137/76; TEMP 99.4; O2SAT 100
[2023-01-12] MEDS: BLOOD SUGAR DIAGNOSTIC 1 EACH STRIP IN SCH ×5 (00:07→23:41)
[2023-01-12] MEDS: INSULIN REGULAR, HUMAN 100 UNIT/ML 3 ML VIAL SQ PRN ×3 (00:09→12:54)
--- NOTE | 2023-01-12 02:13 | NUR ---
ADMISSION NOTE PATIENT BROUGHT IN UNIT AT AROUND 2054, ACCOMPANIED BY 2 ER PERSONNELS. PATIENT IS OBTUNDED TRACH/VENT DEPENDENT PATIENT WITH SHILEY #8 CUFF FROM FACILITY. PATIENT HAS LEFT HAND #20G INTACT AND PATENT. [facility] HD CATH, INTACT. PATIENT HAS G-TUBE INTACT, INJECTED AIR, AIR HEARD UPON AUSCULTATION. PATIENT HAS DISTENDED STOMACH THAT IS SOFT NON-TENDED TO PALPATE. BELONGINGS CHECKED, NEW ID BAND ON PATIENT. SKIN ASSESSMENT DONE. PATIENT CAME IN WITH A BO FROM THE ER, DRAINING VIA GRAVITY. SAFETY IN PLACE-- BED LOCKED POSITION, SIDE RAILS UP X4. V/S CHECKED AND CHARTED. WILL CONTINUE WITH PATIENT'S PLAN OF CARE AND FOLLOW THROUGH DOCTOR'S ORDERS.
[2023-01-12 04:00] VITALS: BP 156/85; TEMP 98.2; O2SAT 100
[2023-01-12] MEDS ORDERED: NEPRO 1,000 ML BOTTLE GT PRN (04:30)
[2023-01-12 06:00] LABS: BASOPHILS # (AUTO) 0.1 K/uL (0.0-0.2); BASOPHILS % (AUTO) 0.8 % (0.0-2.0); EOSINOPHILS % (AUTO) 3.5 % (0.0-6.0); HEMATOCRIT 28 % (33-45); HEMOGLOBIN 9.6 g/dL (11.5-14.8); LYMPHOCYTES # (AUTO) 1.3 K/uL (0.8-4.8); LYMPHOCYTES % (AUTO) 16.7 % (20.0-44.0); MEAN CORPUSCULAR HGB CONC 34 g/dl (31.0-36.0); MEAN CORPUSCULAR VOLUME 96 fL (82-100); MONOCYTES # (AUTO) 0.8 K/uL (0.1-1.30); MONOCYTES % (AUTO) 10.2 % (2.0-12.0); NEUTROPHILS # (AUTO) 5.3 K/uL (1.8-8.9); NEUTROPHILS % (AUTO) 68.8 % (43.0-81.0); PLATELET COUNT (AUTO) 187 K/uL (150-450); RED BLOOD CELL COUNT(AUTO) 2.94 MIL/uL (4.0-5.2); WHITE BLOOD COUNT (AUTO) 7.6 K/uL (4.3-11.0)
[2023-01-12 06:34] LABS: CALCIUM, SERUM 10.3 mg/dL (8.5-10.1); CREATININE 3.8 mg/dL (0.6-1.3); MAGNESIUM 2.4 mg/dL (1.8-2.4); PHOSPHORUS 2.3 mg/dL (2.5-4.9); POTASSIUM 3.6 mmol/L (3.5-5.1)
--- NOTE | 2023-01-12 07:42 | NUR ---
noc rn closing note all needs attended. Report given to PAULA De Leon for continuity of patient care.
--- NOTE | 2023-01-12 07:45 | NUR ---
MS RN LILA OPENING NOTE (DAY SHIFT) Received patient in bed, on ventilator with Shiley # 8 tracheostomy patent, secure in throat, without any sputum drainage. Patient presented as obtunded, non-verbal, non-responsive. No signs of SOB, O2 Sat =100%, no signs of distress nor pain. Abdomen quite distended and soft. Gaines catheter intact, empty, no urine in closed drainage bag at the moment. All safety measures in place: bed in lowest position; 3 bed side rails up; bed brakes in locked position; bed alarm on; frequent rounding to check patient; HOB elevated at all times for aspiration precautions. Glucerna tube feeding infusinjg through patent G-tube @ 40 mLs/hr. Patient seems to be tolerating tube feeding well with zero residual. Will continue to monitor and care for patient per hospitalist's POC.
[2023-01-12] MEDS ORDERED: MAG HYDROX/AL HYDROX/SIMETH 30 ML UDC GT PRN (07:48)
[2023-01-12] MEDS ORDERED: MAGNESIUM HYDROXIDE 30 ML UDC GT PRN (07:48)
[2023-01-12 08:00] VITALS: BP 151/44; TEMP 98.3; O2SAT 100
[2023-01-12] MEDS ORDERED: DOCU100T2 GT (10:10)
[2023-01-12] MEDS ORDERED: NEUTRA PHOS GT (10:10)
[2023-01-12] MEDS ORDERED: LEVE500T9 GT (10:10)
[2023-01-12] MEDS ORDERED: MIDO5TAB4 GT (10:10)
[2023-01-12] MEDS ORDERED: FERR325T23 GT (10:10)
[2023-01-12] MEDS ORDERED: ONDA4TAB5 GT (10:10)
[2023-01-12] MEDS ORDERED: OMEP20TA5 GT (10:10)
[2023-01-12] MEDS ORDERED: FOLI0.8T2 GT (10:10)
[2023-01-12] MEDS ORDERED: LORA10TA7 GT (10:10)
[2023-01-12] MEDS ORDERED: BLOO-668 IN (11:03)
[2023-01-12] MEDS ORDERED: INSU100V27 SQ (11:03)
[2023-01-12] MEDS ORDERED: HYDR-500 PO (11:03)
[2023-01-12] MEDS ORDERED: NA PHOS,M-B/NA PHOS,DI-BA 1 EA ENEMA RC PRN (12:00)
[2023-01-12] MEDS ORDERED: LORAZEPAM INJ 2 MG/ML VIAL IV PRN (12:00)
[2023-01-12] MEDS ORDERED: MIDODRINE HCL (5MG) 5 MG TABLET GT PRN (12:00)
[2023-01-12] MEDS ORDERED: IPRATROPIUM NEB FS 0.5 MG/2.5 ML AMPUL.NEB NEB PRN (12:00)
[2023-01-12] MEDS ORDERED: BISACODYL SUPP (10 MG) 10 MG/SUPP.RECT SUPP.RECT RC PRN (12:00)
[2023-01-12] MEDS: METOCLOPRAMIDE HCL 10 MG/2 ML VIAL IV SCH ×3 (12:47→23:30)
[2023-01-12] MEDS: PANTOPRAZOLE 40 MG/PACK PACK GT SCH (12:47)
[2023-01-12] MEDS: LEVETIRACETAM SOL (5 ML) 100 MG/ML UDC GT SCH ×2 (12:55→21:15)
--- NOTE | 2023-01-12 14:00 | NUR ---
peritoneal fluids send to lab for analysis as ordered.
[2023-01-12 16:00] VITALS: BP 163/90; O2SAT 100
[2023-01-12] MEDS ORDERED: NEUTRA PHOS 1 POWD.PACKET GT ONE (17:00)
[2023-01-12] MEDS: CEFTRIAXONE 2 G in IV D5W 100 ML IV SCH (17:18)
[2023-01-12] MEDS: DOCUSATE SODIUM LIQ 100 MG/10 ML UDC GT SCH (17:19)
[2023-01-12] MEDS: FERROUS SULFATE (325 MG) 325 MG/TAB TABLET GT SCH (17:19)
--- NOTE | 2023-01-12 18:55 | NUR ---
PAPER TUBE CUTTER LILA CLOSING NOTE (DAY SHIFT) Patient on ventilator with Shiley # 8 tracheostomy patent, secure in throat, without any sputum drainage. Patient continues to be obtunded, non-verbal, non-responsive. No signs of SOB, O2 Sat =100%, no signs of distress nor pain. Abdomen less distended now post paracentesis and draining over 4000 mLs. Gaines catheter intact, drained about 50 mLs tea colored urine and urine specimen sent for culture. All safety measures in place: bed in lowest position; 3 bed side rails up; bed brakes in locked position; bed alarm on; frequent rounding to check patient; HOB elevated at all times for aspiration precautions. Glucerna tube feeding infusing through patent G-tube advanced rate to 50 mLs/hr. Patient seems to be tolerating tube feeding well with zero residual. Patient had extra hemodialysis treatment today. New order to transfer patient to telemetry status, monitor and leads applied to patient's chest. Will endorse to shift supervisor melting RN for AFUA.
--- NOTE | 2023-01-12 19:40 | NUR ---
OCCUPATIONAL WORK EXPERIENCE TEACHER OPENING NOTE RECEIVED PATIENT FROM AM NURSE; PATIENT IN BED, A/O X 0, OBTUNDED; STABLE ON CURRENT [facility] VENT SETTINGS; HOOKED TO TELE MONITORING; WITH G TUBE IN PLACE INFUSING WITH NEPRO AT 45 CC/HR; WITH IV ACCESS AT LEFT HAND G#20 SALINE LOCK; WITH HD CATH IN [facility]; S/P HEMODIALYSIS AND PARACENTESIS TODAY; SAFETY MEASURES IMPLEMENTED, BED LOCKED IN LOWEST POSITION, SIDE RAILS UP X 2, CALL LIGHT WITHIN REACH; HOB ELEVATED; BED ALARM ON; WILL CONTINUE TO MONITOR THROUGHOUT SHIFT
[2023-01-12 21:00] VITALS: BP 148/85; TEMP 99; O2SAT 100
[2023-01-12] MEDS: ATORVASTATIN 40 MG TABLET GT SCH (21:15)
[2023-01-12] MEDS: HEPARIN SODIUM, PORCINE 5000 UNITS/1 ML VIAL SQ SCH (21:16)
[2023-01-13] VITALS: BP 151/82; TEMP 99; O2SAT 100
[2023-01-13 04:00] VITALS: BP 119/68; TEMP 98.2; O2SAT 100
[2023-01-13] MEDS: METOCLOPRAMIDE HCL 10 MG/2 ML VIAL IV SCH ×4 (05:39→23:18)
[2023-01-13] MEDS: BLOOD SUGAR DIAGNOSTIC 1 EACH STRIP IN SCH ×3 (05:51→17:02)
--- NOTE | 2023-01-13 06:58 | NUR ---
GOVERNMENT SALES MANAGER CLOSING NOTE PATIENT IN BED, A/O X 0, OBTUNDED; STABLE ON CURRENT [facility] VENT SETTINGS, BREATHING EVENLY AND NO S/S OF DISTRESS NOTED; HOOKED TO TELE MONITORING CURRENTLY READING SINUS RHYTHM 70-80S BPMS; WITH G TUBE IN PLACE INFUSING WITH NEPRO AT 45 CC/HR, HELD PATIENT WILL UNDERGO LEFT THORACENTESIS TODAY, CHARGE NURSE AWARE, CONSENT SECURED; WITH IV ACCESS AT LEFT HAND G#20 SALINE LOCK, INTACT AND PATENT; WITH HD CATH IN [facility], C/D/I; ADMINISTERED MEDICATIONS PRESCRIBED; PATIENT'S NEEDS ATTENDED; SUCTIONED ACCORDINGLY; SAFETY MEASURES IMPLEMENTED, BED LOCKED IN LOWEST POSITION, SIDE RAILS UP X 2, CALL LIGHT WITHIN REACH; MAINTAINED HOB ELEVATED; BED ALARM ON; WILL ENDORSE TO AM NURSE FOR AFUA.
[2023-01-13 08:00] VITALS: BP 109/55; TEMP 98.3; O2SAT 100
[2023-01-13] MEDS: LEVETIRACETAM SOL (5 ML) 100 MG/ML UDC GT SCH ×2 (08:32→21:40)
[2023-01-13] MEDS: PANTOPRAZOLE 40 MG/PACK PACK GT SCH (08:32)
[2023-01-13] MEDS: POLYETHYLENE GLYCOL 3350 17 GM POWD.PACK GT SCH (08:32)
[2023-01-13] MEDS: DOCUSATE SODIUM LIQ 100 MG/10 ML UDC GT SCH ×2 (08:32→16:35)
[2023-01-13] MEDS: FERROUS SULFATE (325 MG) 325 MG/TAB TABLET GT SCH ×2 (08:33→16:35)
[2023-01-13] MEDS: VIT B CMPLX 3/FA/VIT C/BIOTIN 1 TAB TABLET GT SCH (08:33)
[2023-01-13] MEDS: AMLODIPINE BESYLATE 10 MG TABLET GT SCH (08:33)
[2023-01-13] MEDS: HEPARIN SODIUM, PORCINE 5000 UNITS/1 ML VIAL SQ SCH ×2 (08:34→21:42)
--- NOTE | 2023-01-13 08:34 | NUR ---
HEPARIN HELD DUE TO THORACENTESIS PROCEDURE WILL BE DONE TODAY
--- NOTE | 2023-01-13 08:34 | NUR ---
PATIENT IS NPO AND ALSO FEEDING TUBE IS HELD DUE TO THORACENTESIS
[2023-01-13 11:24] LABS: BASOPHILS # (AUTO) 0.1 K/uL (0.0-0.2); BASOPHILS % (AUTO) 0.9 % (0.0-2.0); CALCIUM, SERUM 10.1 mg/dL (8.5-10.1); CREATININE 3.8 mg/dL (0.6-1.3); EOSINOPHILS % (AUTO) 1.5 % (0.0-6.0); HEMATOCRIT 32 % (33-45); HEMOGLOBIN 10.4 g/dL (11.5-14.8); LYMPHOCYTES # (AUTO) 1.3 K/uL (0.8-4.8); LYMPHOCYTES % (AUTO) 13.3 % (20.0-44.0); MAGNESIUM 2.3 mg/dL (1.8-2.4); MEAN CORPUSCULAR HGB CONC 33 g/dl (31.0-36.0); MEAN CORPUSCULAR VOLUME 99 fL (82-100); NEUTROPHILS # (AUTO) 6.9 K/uL (1.8-8.9); NEUTROPHILS % (AUTO) 73.3 % (43.0-81.0); PLATELET COUNT (AUTO) 200 K/uL (150-450); POTASSIUM 4.3 mmol/L (3.5-5.1); RED BLOOD CELL COUNT(AUTO) 3.21 MIL/uL (4.0-5.2); WHITE BLOOD COUNT (AUTO) 9.4 K/uL (4.3-11.0)
[2023-01-13 12:00] VITALS: BP 128/70; TEMP 98.1; O2SAT 100
--- NOTE | 2023-01-13 14:00 | NUR ---
RECEIVED A CALL FROM X-RAY THAT THORACENTESIS WILL NOT BE DONE TODAY, BUT TOMORROW. CONSENT IS ALREADY PLACED IN THE CHART BY CONTINUOUS IMPROVEMENT CONSULTANT NURSE.
[2023-01-13] MEDS: CEFTRIAXONE 2 G in IV D5W 100 ML IV SCH (15:47)
[2023-01-13 16:00] VITALS: BP 131/73; TEMP 98.2; O2SAT 100
[2023-01-13] MEDS: INSULIN REGULAR, HUMAN 100 UNIT/ML 3 ML VIAL SQ PRN (17:05)
--- NOTE | 2023-01-13 18:56 | NUR ---
RN CLOSING NOTES PATIENT IN BED OPEN EYES, ON VENT O2 SATURATION 100%. NO S/S OF SOB OR DISTRESS NOTED. PATIENT KEPT CLEAN AND DRY THROUGHOUT THE SHIFT REPOSITION EVERY 2 HRS TO PREVENT PRESSURE SORE. ALL DUE MEDS GIVEN. THORACENTESIS POSTPONED TO TOMORROW MORNING. CONSENT ALREADY SIGNED AND PLACED IN THE CHART SINCE LAST NIGHT. ALL SAFETY MEASURES IMPLEMENTED, WILL INDORSE THE PATIENT TO THE GATEHOUSE ATTENDANT NURSE FOR AFUA.
--- NOTE | 2023-01-13 19:45 | NUR ---
RN VIKTOR NOTES PATIENT IN BED OPEN EYES, ON VENT O2 SATURATION 100%. NO S/S OF SOB OR DISTRESS NOTED. IV ACCESS ON LEFT HAND GAUGE 20, FLUSHES WELL, PATENT AND INTACT. THORACENTESIS POSTPONED TO TOMORROW MORNING. ALL SAFETY MEASURES IMPLEMENTED: BED LOCKED IN THE LOWEST POSITION, SR UP X3, CALL LIGHT WITHIN REACH. WILL CONTINUE TO MONITOR.
[2023-01-13 20:00] VITALS: BP 152/80; TEMP 98.8; O2SAT 100
[2023-01-13] MEDS: ATORVASTATIN 40 MG TABLET GT SCH (21:42)
[2023-01-13] MEDS: INSULIN GLARGINE, 100 UNIT/ML CARTRIDGE SQ SCH (21:55)
--- NOTE | 2023-01-13 22:00 | NUR ---
RN NOTE GASTRIC RESIDUAL 240 ML. FEEDING ON HOLD. WILL CONTINUE TO MONITOR
[2023-01-14] VITALS: BP_SYST 114; BP_SYST 163; BP_DIAS 67; BP_DIAS 82; TEMP 98.8; O2SAT 100
--- NOTE | 2023-01-14 00:45 | NUR ---
RN NOTE GASTRIC RESIDUAL 150 ML, CONTINUE HOLDING FEEDING. BS 287, NO COVERAGE GIVEN DUE TO G-TUBE FEEDING BEING ON HOLD.
[2023-01-14] MEDS: BLOOD SUGAR DIAGNOSTIC 1 EACH STRIP IN SCH ×5 (00:55→23:25)
[2023-01-14] MEDS: INSULIN REGULAR, HUMAN 100 UNIT/ML 3 ML VIAL SQ PRN ×5 (03:21→23:27)
[2023-01-14 04:00] VITALS: BP 136/70; TEMP 98.3; O2SAT 99
--- NOTE | 2023-01-14 05:00 | NUR ---
RN NOTE GASTRIC RESIDUAL 90 ML, RESUMED FEEDING AT 30 ML/HR. WILL CONTINUE TO MONITOR THE RESIDUAL.
[2023-01-14] MEDS: NEPRO 1,000 ML BOTTLE GT PRN (05:08)
[2023-01-14 05:50] LABS: BASOPHILS # (AUTO) 0.1 K/uL (0.0-0.2); HEMATOCRIT 32 % (33-45); HEMOGLOBIN 10.5 g/dL (11.5-14.8); LYMPHOCYTES # (AUTO) 2.3 K/uL (0.8-4.8); LYMPHOCYTES % (AUTO) 25.2 % (20.0-44.0); MEAN CORPUSCULAR HGB CONC 33 g/dl (31.0-36.0); MEAN CORPUSCULAR VOLUME 98 fL (82-100); MONOCYTES % (AUTO) 10.7 % (2.0-12.0); NEUTROPHILS # (AUTO) 5.5 K/uL (1.8-8.9); NEUTROPHILS % (AUTO) 60.1 % (43.0-81.0); PLATELET COUNT (AUTO) 227 K/uL (150-450); RED BLOOD CELL COUNT(AUTO) 3.26 MIL/uL (4.0-5.2); WHITE BLOOD COUNT (AUTO) 9.2 K/uL (4.3-11.0)
[2023-01-14] MEDS: METOCLOPRAMIDE HCL 10 MG/2 ML VIAL IV SCH ×4 (05:50→23:32)
[2023-01-14 06:10] LABS: CALCIUM, SERUM 10.4 mg/dL (8.5-10.1); CREATININE 5.2 mg/dL (0.6-1.3); MAGNESIUM 2.5 mg/dL (1.8-2.4); PHOSPHORUS 3.6 mg/dL (2.5-4.9); POTASSIUM 3.8 mmol/L (3.5-5.1)
--- NOTE | 2023-01-14 06:45 | NUR ---
RN CLOSING NOTES PATIENT IS IN BED, OPENS EYES, ON VENT O2 SATURATION 99%. NO S/S OF SOB OR DISTRESS NOTED. PATIENT IS SR-ST ON THE MONITOR. WILL KEEP CLEAN AND DRY THROUGHOUT THE SHIFT REPOSITION EVERY 2 HRS. HD AND THORACENTESIS PLANNED FOR TODAY. CONSENT ALREADY SIGNED AND PLACED IN THE CHART. LAC 20 G FLUSHES WELL, PATENT AND INTACT. RU CHEST CENTRAL LINE FOR HEMODIALYSIS NOTED. PATIENT ON G-TUBE FEEDING AT 30 ML/HR. FEEDING WAS HELD FROM 2200 TO 0500 DUE TO GASTRIC RESIDUAL EXCEEDING 100 ML. ALL SAFETY MEASURES IMPLEMENTED: BED LOCKED IN THE LOWEST POSITION, SR UP X3, BED ALARM ON, CALL LIGHT WITHIN REACH. WILL ENDORSE TO THE NEXT SHIFT FOR AFUA
--- NOTE | 2023-01-14 07:32 | NUR ---
RN OPEN NOTES PATIENT IS IN BED OPEN EYES, ON VENT O2 SATURATION 100%. NO S/S OF SOB OR DISTRESS NOTED. WILL KEEP CLEAN AND DRY THROUGHOUT THE SHIFT REPOSITION EVERY 2 HRS TO PREVENT PRESSURE SORE. THORACENTESIS SCEDUALED FOR TODAY . CONSENT ALREADY SIGNED AND PLACED IN THE CHART SINCE LAST NIGHTHAS LAC 20 G RU CHEST CENTRAL LINE FOR HEMODIALYSIS . ALL SAFETY MEASURES IMPLEMENTED, WILL CONTINUE TO MONITOR
[2023-01-14 08:00] VITALS: BP 111/63; TEMP 98.8; O2SAT 99
[2023-01-14] MEDS: PANTOPRAZOLE 40 MG/PACK PACK GT SCH (08:29)
[2023-01-14] MEDS: LEVETIRACETAM SOL (5 ML) 100 MG/ML UDC GT SCH ×2 (08:29→22:26)
[2023-01-14] MEDS: FERROUS SULFATE (325 MG) 325 MG/TAB TABLET GT SCH ×2 (08:29→16:47)
[2023-01-14] MEDS: DOCUSATE SODIUM LIQ 100 MG/10 ML UDC GT SCH ×2 (08:29→16:47)
[2023-01-14] MEDS: POLYETHYLENE GLYCOL 3350 17 GM POWD.PACK GT SCH (08:30)
[2023-01-14] MEDS: AMLODIPINE BESYLATE 10 MG TABLET GT SCH (08:30)
[2023-01-14] MEDS: VIT B CMPLX 3/FA/VIT C/BIOTIN 1 TAB TABLET GT SCH (08:30)
[2023-01-14] MEDS: HEPARIN SODIUM, PORCINE 5000 UNITS/1 ML VIAL SQ SCH ×2 (08:32→22:28)
--- NOTE | 2023-01-14 08:32 | NUR ---
RN NOTE HEPARIN WASENT ADMINISTRED DUE TO PATIENT IS SCHEDULED FOR THORACENTESIS
[2023-01-14 12:00] VITALS: BP 137/85; TEMP 98.7; O2SAT 99
[2023-01-14] MEDS: CEFTRIAXONE 2 G in IV D5W 100 ML IV SCH (15:38)
[2023-01-14 16:00] VITALS: BP 147/85; TEMP 98.8; O2SAT 99
--- NOTE | 2023-01-14 18:50 | NUR ---
RN CLOSING NOTES PATIENT IS IN BED, OPENS EYES, ON VENT O2 SATURATION 99%. NO S/S OF SOB OR DISTRESS NOTED. PATIENT IS SR-ST ON THE MONITOR. KEPT CLEAN AND DRY THROUGHOUT THE SHIFT REPOSITIONED EVERY 2 HRS. HD AND THORACENTESIS DONE TODAY. CONSENT LAC 20 G FLUSHES WELL, PATENT AND INTACT. RU CHEST CENTRAL LINE FOR HEMODIALYSIS NOTED. PATIENT ON G-TUBE FEEDING AT 30 ML/HR. . ALL SAFETY MEASURES IMPLEMENTED: BED LOCKED IN THE , BED ISDE RAILS ARE UP , WILL ENDORSE FRAUD MANAGER NURSE TO FALLOW POC
--- NOTE | 2023-01-14 19:18 | NUR ---
RN NOTE RECEIVED PT FOR CONTINUITY OF CARE. PATIENT A/OX0 IN NO S/SX OF ACUTE DISTRESS AT THIS TIME; CURRENTLY ON MECHANICAL VENT; SETTING PRESCRIBED, WITH 02 SAT >95% AT THIS TIME. WITH IV ACCESS PATENT, INTACT AND FLUSHING WELL. GTUBE FEEDING RUNNING PRESCRIBED. WILL ENSURE SAFETY MEASURES WITHIN THE SHIFT. PATIENT BED ALARM IS ON. HEAD OF BED ELEVATED. BED IS LOCKED, IN LOWEST POSITION AND SIDE RAILS UP. CALL LIGHT WITHIN REACH OF THE PATIENT. WILL CONTINUE TO MONITOR AND REASSESS FOR ANY CHANGES AND WILL CARRY OUT ANY ONGOING AND ACTIVE MD ORDER.
[2023-01-14 20:00] VITALS: BP 138/59; TEMP 98.6; O2SAT 100
[2023-01-14] MEDS: ATORVASTATIN 40 MG TABLET GT SCH (22:26)
[2023-01-14] MEDS: INSULIN GLARGINE, 100 UNIT/ML CARTRIDGE SQ SCH (23:26)
[2023-01-15] VITALS: BP 155/84; TEMP 99.3; O2SAT 100
[2023-01-15 04:00] VITALS: BP 138/78; TEMP 98.5; O2SAT 97
--- NOTE | 2023-01-15 04:00 | NUR ---
RN NOTE PATIENT REMAINED TO BE IN NO SIGNS OF ACUTE RESPIRATORY DISTRESS , VITAL SIGNS STABLE AT THIS TIME. REGULAR TURNING AND REPOSITIONING DONE, SUCTIONING DONE, AND AM PATIENT CARE RENDERED WILL CONTINUE TO MONITOR AND REASSESS FOR ANY CHANGES THROUGHOUT THE SHIFT.
[2023-01-15] MEDS: METOCLOPRAMIDE HCL 10 MG/2 ML VIAL IV SCH ×3 (05:31→17:43)
[2023-01-15] MEDS: BLOOD SUGAR DIAGNOSTIC 1 EACH STRIP IN SCH ×3 (05:42→17:40)
[2023-01-15] MEDS: INSULIN REGULAR, HUMAN 100 UNIT/ML 3 ML VIAL SQ PRN ×3 (05:43→17:41)
[2023-01-15 06:01] LABS: CALCIUM, SERUM 10.9 mg/dL (8.5-10.1); CREATININE 3.9 mg/dL (0.6-1.3); MAGNESIUM 2.3 mg/dL (1.8-2.4); PHOSPHORUS 3.1 mg/dL (2.5-4.9); POTASSIUM 3.9 mmol/L (3.5-5.1)
[2023-01-15 06:03] LABS: BASOPHILS # (AUTO) 0.1 K/uL (0.0-0.2); BASOPHILS % (AUTO) 0.6 % (0.0-2.0); EOSINOPHILS % (AUTO) 1.6 % (0.0-6.0); HEMATOCRIT 34 % (33-45); LYMPHOCYTES # (AUTO) 1.4 K/uL (0.8-4.8); LYMPHOCYTES % (AUTO) 12.7 % (20.0-44.0); MEAN CORPUSCULAR HGB CONC 32 g/dl (31.0-36.0); MEAN CORPUSCULAR VOLUME 99 fL (82-100); MONOCYTES % (AUTO) 8.9 % (2.0-12.0); NEUTROPHILS # (AUTO) 8.7 K/uL (1.8-8.9); NEUTROPHILS % (AUTO) 76.2 % (43.0-81.0); PLATELET COUNT (AUTO) 249 K/uL (150-450); RED BLOOD CELL COUNT(AUTO) 3.45 MIL/uL (4.0-5.2); WHITE BLOOD COUNT (AUTO) 11.4 K/uL (4.3-11.0)
--- NOTE | 2023-01-15 06:47 | NUR ---
RN NOTE PATIENT REMAINS IN ROOM IN NO SIGNS OF RESPIRATORY DISTRESS, PATIENT STILL ON MECH VENT; SETTINGS PRESCRIBED;TOLERATING WELL SATURATING @ >92% SP02. SAFETY MEASURES IMPLEMENTED, BED IN LOWEST POSITION, LOCKED, SIDE RAILS UP, CALL LIGHT WITHIN REACH. ALL NEEDS AND ORDERS ADDRESSED DURING THE SHIFT. IV ACCESS MAINTAINED INTACT, SECURED AND FLUSHING WELL. TUBE FEEDING NOW ON 40ML/HR; TOLERATES WELL. ALL DUE MEDS GIVEN ORDERED & SCHEDULED ; PATIENT TOLERATED WELL. PATIENT KEPT CLEAN AND COMFORTABLE WITHIN THE SHIFT. PLAN: CONTINUE TUBE FEEDING, HD PER NEPHRO, MAINTAIN O2 SAT >92% AND CONT ABX. PATIENT ENDORSED TO INCOMING SHIFT RN WITH STABLE VITAL SIGN AND FOR CONTINUITY OF CARE.
--- NOTE | 2023-01-15 07:15 | NUR ---
RN OPEN NOTE PATIENT OBTUNED, IN NO S/SX OF ACUTE DISTRESS AT THIS TIME; CURRENTLY ON MECHANICAL VENT; SETTING PRESCRIBED, WITH 02 SAT >95% AT THIS TIME. WITH IV ACCESS PATENT, INTACT AND FLUSHING WELL. GTUBE FEEDING RUNNING AT 45 ML/HR NEPHRO, WILL ENSURE SAFETY MEASURES WITHIN THE SHIFT. PATIENT BED ALARM IS ON. HEAD OF BED ELEVATED. BED IS LOCKED, IN LOWEST POSITION AND SIDE RAILS UP. CALL LIGHT WITHIN REACH OF THE PATIENT. WILL CONTINUE TO MONITOR AND REASSESS FOR ANY CHANGES AND WILL CARRY OUT ANY ONGOING AND ACTIVE MD ORDER.
[2023-01-15 08:00] VITALS: BP 126/73; TEMP 98.5; O2SAT 97
[2023-01-15] MEDS: VIT B CMPLX 3/FA/VIT C/BIOTIN 1 TAB TABLET GT SCH (08:08)
[2023-01-15] MEDS: AMLODIPINE BESYLATE 10 MG TABLET GT SCH (08:08)
[2023-01-15] MEDS: DOCUSATE SODIUM LIQ 100 MG/10 ML UDC GT SCH ×2 (08:08→16:21)
[2023-01-15] MEDS: HEPARIN SODIUM, PORCINE 5000 UNITS/1 ML VIAL SQ SCH ×2 (08:09→21:03)
[2023-01-15] MEDS: LEVETIRACETAM SOL (5 ML) 100 MG/ML UDC GT SCH ×2 (08:10→21:04)
[2023-01-15] MEDS: POLYETHYLENE GLYCOL 3350 17 GM POWD.PACK GT SCH (08:10)
[2023-01-15] MEDS: PANTOPRAZOLE 40 MG/PACK PACK GT SCH (08:10)
[2023-01-15] MEDS: FERROUS SULFATE (325 MG) 325 MG/TAB TABLET GT SCH ×2 (08:10→16:21)
[2023-01-15 12:00] VITALS: BP 137/78; TEMP 98.8; O2SAT 97
[2023-01-15] MEDS: CEFTRIAXONE 2 G in IV D5W 100 ML IV SCH (15:02)
[2023-01-15 16:00] VITALS: BP 143/60; TEMP 98.9; O2SAT 97
--- NOTE | 2023-01-15 18:40 | NUR ---
RN CLOSING NOTES PATIENT IS IN BED, OPENS EYES, ON VENT O2 SATURATION 99%. NO S/S OF SOB OR DISTRESS NOTED. PATIENT IS SR-ST ON THE MONITOR. KEPT CLEAN AND DRY THROUGHOUT THE SHIFT REPOSITIONED EVERY 2 HRS. , IV ACCES RIGHT FA 22 G FLUSHES WELL, PATENT AND INTACT. RU CHEST CENTRAL LINE FOR HEMODIALYSIS NOTED. PATIENT ON G-TUBE FEEDING AT 45 ML/HR. . ALL SAFETY MEASURES IMPLEMENTED: BED LOCKED IN THE , BED SIDE RAILS ARE UP , WILL ENDORSE VAULT CUSTODIAN NURSE TO FALLOW POC
[2023-01-15] MEDS: NEPRO 1,000 ML BOTTLE GT PRN (19:45)
[2023-01-15 20:00] VITALS: BP 136/89; TEMP 98.3; O2SAT 100
--- NOTE | 2023-01-15 20:00 | NUR ---
RECEIVED PATIENT IN BED, ALERT AND AWAKE, OPENS EYES, NON VERBAL, VENTILATOR DEPENDENT, SPO2 98 TO 100%, SUCTIONED PRN, NOT IN APPARENT DISTRESS, PEG TUBE FEEDING NEPRO AT 45 ML/HR, GOAL REACHED, TOLERATING WELL, NO RESIDUAL, FLUSHED. KEPT HOB ELEVATED AT 45 DEGREES, SEIZURE AND ASPIRATION PRECAUTION, KEPT SAFE, WILL CONTINUE TO MONITOR.
[2023-01-15] MEDS: ATORVASTATIN 40 MG TABLET GT SCH (21:18)
[2023-01-15] MEDS: INSULIN GLARGINE, 100 UNIT/ML CARTRIDGE SQ SCH (22:16)
[2023-01-16] VITALS (7 sets, daily range): BP systolic 125–158; BP diastolic 69–79; TEMP 97.1–98.7; O2SAT 99–100
[2023-01-16] MEDS: BLOOD SUGAR DIAGNOSTIC 1 EACH STRIP IN SCH ×4 (00:08→18:33)
[2023-01-16] MEDS: INSULIN REGULAR, HUMAN 100 UNIT/ML 3 ML VIAL SQ PRN ×4 (00:09→18:42)
[2023-01-16] MEDS: METOCLOPRAMIDE HCL 10 MG/2 ML VIAL IV SCH ×4 (00:12→18:24)
--- NOTE | 2023-01-16 06:14 | NUR ---
ALERT AND AWAKE, NON VERBAL, VENTILATOR DEPENDENT, NO RESPIRATORY DISTRESS, SPO2 FROM 98 TO 100%, NOT IN APPARENT PAIN, NO FACIAL GRIMACING. SINUS TACHY, OLIGURIC, ESRD ON HD, RIGHT CHEST WALL HD CATH, STRICTLY NPO, NEPRO AT 45 ML/HR, TOLERATING WELL. SEIZURE AND ASPIRATION PRECAUTION, AM LABS, HD TODAY.
[2023-01-16 06:51] LABS: BASOPHILS # (AUTO) 0.1 K/uL (0.0-0.2); BASOPHILS % (AUTO) 0.8 % (0.0-2.0); EOSINOPHILS % (AUTO) 2.8 % (0.0-6.0); HEMATOCRIT 35 % (33-45); HEMOGLOBIN 11.4 g/dL (11.5-14.8); LYMPHOCYTES # (AUTO) 1.7 K/uL (0.8-4.8); LYMPHOCYTES % (AUTO) 17.9 % (20.0-44.0); MEAN CORPUSCULAR HGB CONC 33 g/dl (31.0-36.0); MEAN CORPUSCULAR VOLUME 98 fL (82-100); MONOCYTES # (AUTO) 0.8 K/uL (0.1-1.30); NEUTROPHILS # (AUTO) 6.6 K/uL (1.8-8.9); NEUTROPHILS % (AUTO) 69.5 % (43.0-81.0); PLATELET COUNT (AUTO) 235 K/uL (150-450); RED BLOOD CELL COUNT(AUTO) 3.52 MIL/uL (4.0-5.2); WHITE BLOOD COUNT (AUTO) 9.4 K/uL (4.3-11.0)
--- NOTE | 2023-01-16 07:00 | NUR ---
RN OPENING NOTES PATIENT IN BED, OPENS EYES, ON VENT O2 SATURATION 100%. NO S/S OF SOB OR DISTRESS NOTED. PATIENT IS SR-ST ON THE MONITOR. IV ACCES RIGHT FA 22 G FLUSHES WELL, PATENT AND INTACT. RU CHEST CENTRAL LINE FOR HEMODIALYSIS NOTED. ON G-TUBE FEEDING AT 45 ML/HR. HOB AT 30. ALL SAFETY MEASURES IMPLEMENTED: BED LOCKED IN THE , BED SIDE RAILS ARE UP , WILL CONTINUE TO MONITOR.
[2023-01-16 07:29] LABS: CALCIUM, SERUM 10.6 mg/dL (8.5-10.1); CREATININE 5.5 mg/dL (0.6-1.3); MAGNESIUM 2.6 mg/dL (1.8-2.4); PHOSPHORUS 3.7 mg/dL (2.5-4.9); POTASSIUM 4.6 mmol/L (3.5-5.1)
[2023-01-16] MEDS: AMLODIPINE BESYLATE 10 MG TABLET GT SCH (08:08)
[2023-01-16] MEDS: PANTOPRAZOLE 40 MG/PACK PACK GT SCH (08:08)
[2023-01-16] MEDS: VIT B CMPLX 3/FA/VIT C/BIOTIN 1 TAB TABLET GT SCH (08:08)
[2023-01-16] MEDS: POLYETHYLENE GLYCOL 3350 17 GM POWD.PACK GT SCH (08:08)
[2023-01-16] MEDS: DOCUSATE SODIUM LIQ 100 MG/10 ML UDC GT SCH ×2 (08:08→17:49)
[2023-01-16] MEDS: FERROUS SULFATE (325 MG) 325 MG/TAB TABLET GT SCH ×2 (08:08→17:49)
[2023-01-16] MEDS: LEVETIRACETAM SOL (5 ML) 100 MG/ML UDC GT SCH ×2 (08:08→21:40)
[2023-01-16] MEDS: HEPARIN SODIUM, PORCINE 5000 UNITS/1 ML VIAL SQ SCH ×2 (08:10→21:49)
--- NOTE | 2023-01-16 16:11 | NUR ---
RN NOTE PATIENT IS IN HEMODIALYSIS, UNABLE TO ADMINISTER ROCEPHIN. PHARMACY WAS CALLED AND WAS ADVISED TO WAIT UNTIL DIALYSIS IS OVER SO THAT ROCEPHIN CAN BE ADMINISTERED. CHARGED NURSE NOTIFIED.
[2023-01-16] MEDS: CEFTRIAXONE 2 G in IV D5W 100 ML IV SCH (18:14)
--- NOTE | 2023-01-16 19:38 | NUR ---
RN CLOSING NOTES PATIENT IN BED, OPENS EYES, ON VENT O2 SATURATION 100%. NO S/S OF SOB OR DISTRESS NOTED. PATIENT IS SR-ST ON THE MONITOR. IV ACCES RIGHT FA 22 G FLUSHES WELL, PATENT AND INTACT. RU CHEST CENTRAL LINE FOR HEMODIALYSIS NOTED. ON G-TUBE FEEDING AT 45 ML/HR. HOB AT 30. ALL MEDICATIONS GIVEN, PATIENT WAS REPOSITIONED EVERY TWO HOURS. ALL SAFETY MEASURES IMPLEMENTED: BED LOCKED IN THE , BED SIDE RAILS ARE UP, REPORT GIVEN TO [employer] SALES NURSE FOR AFUA.
--- NOTE | 2023-01-16 19:40 | NUR ---
HEMMER LOCKSTITCH OPENING NOTES - RECEIVED PATIENT IN BED, NON-VERBAL BUT OPENS EYES ON VERBAL STIMULI. BREATHING EVEN AND NON-LABORED. ON MECHANICAL VENT WITH SETTINGS: AC 16, TV 500, FIO2 40, PEEP 5. NO S/S OF PAIN OR DISCOMFORT NOTED. ON TELE MONITOR READING SINUS RHYTHM AT 97 BPM. HAS RIGHT FOREARM IV ACCESS #22G AND SALINE LOCKED. NO S/S OF INFILTRATION NOTED. HAS RIGHT UPPER CHEST WALL PERMACATH, DRESSING INTACT. ON PEG TUBE FEEDING OF NEPRO RUNNING AT 45 ML/HR. SAFETY PRECAUTIONS IN PLACE: BED LOCKED AND IN LOW POSITION, SIDE RAILS UP X3, CALL LIGHT WITHIN REACH. WILL CONTINUE PLAN OF CARE.
[2023-01-16] MEDS: ATORVASTATIN 40 MG TABLET GT SCH (21:40)
[2023-01-16] MEDS: INSULIN GLARGINE, 100 UNIT/ML CARTRIDGE SQ SCH (21:57)
[2023-01-16] MEDS: NEPRO 1,000 ML BOTTLE GT PRN (22:00)
[2023-01-17] VITALS: BP 146/72; TEMP 98.2; O2SAT 100
[2023-01-17] MEDS: METOCLOPRAMIDE HCL 10 MG/2 ML VIAL IV SCH ×3 (00:18→11:25)
[2023-01-17] MEDS: BLOOD SUGAR DIAGNOSTIC 1 EACH STRIP IN SCH ×3 (00:26→11:53)
[2023-01-17] MEDS: INSULIN REGULAR, HUMAN 100 UNIT/ML 3 ML VIAL SQ PRN ×3 (00:28→11:54)
[2023-01-17 04:00] VITALS: BP 120/68; TEMP 98.2; O2SAT 99
--- NOTE | 2023-01-17 06:55 | NUR ---
DOG BREEDER CLOSING NOTES - PATIENT SLEEPING, EASY TO AROUSE. OBTUNDED AND AWAKE THROUGHOUT THE NIGHT. NOT IN CARDIAC OR RESPIRATORY DISTRESS. SATURATING WELL ON CURRENT MECHANICAL VENT SETTINGS. AFEBRILE. NO S/S OF PAIN NOTED. TELE MONITOR SHOWS SINUS RHYTHM AT 70-97 BPM. RIGHT FOREARM IV ACCESS INTACT, PATENT AND FLUSHING. ALL DUE MEDS GIVEN AND NEEDS ATTENDED. STRICT ASPIRATION PRECAUTION OBSERVED. PERINEAL AND SKIN CARE RENDERED. TURNED AND REPOSITIONED EVERY 2 HOURS. SAFETY PRECAUTIONS MAINTAINED. WILL ENDORSE TO AM RN FOR AFUA.
--- NOTE | 2023-01-17 07:33 | NUR ---
[employer] GARDENING SPECIALIST OPENING NOTES PATIENT RECEIVED IN BED SLEEPING. PATIENT IS OBTUNDED. ON VENT WITH SETTINGS PRESCRIBED, BREATHING EVEN AND UNLABORED WITH NO S/S OF SOB OR RESPIRATORY DISTRESS. ON CARDICA MONITOR. RIGHT FOREARM IV ACCESS INTACT, PATENT AND FLUSHING. SAFETY PRECAUTIONS IN PLACE WITH BED IN LOWEST LOCKED POSITION, SIDE RAILS UP X3, CALL LIGHT WITHIN REACH. WILL CONTINUE TO MONITOR.
[2023-01-17 08:00] VITALS: BP 151/81; TEMP 98.6; O2SAT 100
[2023-01-17] MEDS: PANTOPRAZOLE 40 MG/PACK PACK GT SCH (09:08)
[2023-01-17] MEDS: DOCUSATE SODIUM LIQ 100 MG/10 ML UDC GT SCH (09:08)
[2023-01-17] MEDS: POLYETHYLENE GLYCOL 3350 17 GM POWD.PACK GT SCH (09:08)
[2023-01-17] MEDS: FERROUS SULFATE (325 MG) 325 MG/TAB TABLET GT SCH (09:09)
[2023-01-17] MEDS: VIT B CMPLX 3/FA/VIT C/BIOTIN 1 TAB TABLET GT SCH (09:09)
[2023-01-17] MEDS: HEPARIN SODIUM, PORCINE 5000 UNITS/1 ML VIAL SQ SCH (09:10)
[2023-01-17] MEDS: LEVETIRACETAM SOL (5 ML) 100 MG/ML UDC GT SCH (09:12)
[2023-01-17] MEDS: AMLODIPINE BESYLATE 10 MG TABLET GT SCH (09:29)
[2023-01-17 12:00] VITALS: BP 122/73; TEMP 98.5; O2SAT 100
[2023-01-17] MEDS ORDERED: NITR100C6 GT (12:21)
[2023-01-17] MEDS ORDERED: NITR100C6 PO (13:17)
--- NOTE | 2023-01-17 15:41 | NUR ---
PATIENT DISCHARGED IN STABLE CONDITION. REPORT GIVEN TO CHAD AT [facility].
== END 2023-01-17 15:58 | DRG 468 ==
LOC: ER 13:52 → MEDSG1 20:00 → TELE1 01-12 19:12
PROVIDERS: ADMIT Nurse Practitioner Acute Care; ATTEND Nurse Practitioner Acute Care
PROC: 5A1955Z Respiratory Ventilation, Greater than 96 Consecutive Hours (ICD-10-PCS; principal; 2023-01-11)
PROC: 0W9G3ZZ Drainage of Peritoneal Cavity, Percutaneous Approach (ICD-10-PCS; 2023-01-12)
PROC: 5A1D70Z Performance of Urinary Filtration, Intermittent, Less than 6 Hours Per Day (ICD-10-PCS; 2023-01-12)
PROC: 0W9B3ZZ Drainage of Left Pleural Cavity, Percutaneous Approach (ICD-10-PCS; 2023-01-14)
DX: E11.22 Type 2 diabetes mellitus with diabetic chronic kidney disease (principal); J96.20 Acute and chronic respiratory failure, unspecified whether with hypoxia or hypercapnia; G93.1 Anoxic brain damage, not elsewhere classified; J91.8 Pleural effusion in other conditions classified elsewhere; N18.6 End stage renal disease; I69.351 Hemiplegia and hemiparesis following cerebral infarction affecting right dominant side; D63.1 Anemia in chronic kidney disease; R18.8 Other ascites; I12.0 Hypertensive chronic kidney disease with stage 5 chronic kidney disease or end stage renal disease; Z99.11 Dependence on respirator [ventilator] status; Z99.2 Dependence on renal dialysis; Z79.4 Long term (current) use of insulin; G40.909 Epilepsy, unspecified, not intractable, without status epilepticus; E78.5 Hyperlipidemia, unspecified; Z93.1 Gastrostomy status; K59.00 Constipation, unspecified; N39.0 Urinary tract infection, site not specified; R13.10 Dysphagia, unspecified; B95.2 Enterococcus as the cause of diseases classified elsewhere; R29.90 Unspecified symptoms and signs involving the nervous system; Z74.01 Bed confinement status; Z88.2 Allergy status to sulfonamides; Z91.040 Latex allergy status
CPT/HCPCS: 31720; 36415; 71045-TC; 76942-TC; 80048-TC; 80076-TC; 82040-TC; 82962-TC; 83690-TC; 83735-TC; 84100-TC; 84484-TC; 84703-TC; 85025-TC; 85610-TC; 87040-TC; 87081-TC; 87086-TC; 88108-TC; 88305-TC; 88312-TC; 89051-TC; 90935-TC; 94003-TC; 94760-TC; 94762-TC; 94799-TC; A4223; A7526; C9113; G0378; J0696; J1644; J1815; J1953; J2765; J7030; J7050; J7060

== ENCOUNTER 2025-04-09 13:52 | Emergency (ER) | payer MEDICAID ==
[~2025-04-09] VITALS: Ht 162.6 cm; Wt 69.9 kg
[~2025-04-09 13:52] MED LIST changes: +BLOO-668 IN; -CARV25TA GT; -CLON0.1T GT; +DOCU100T2 GT; -DOCU50LI GT; -DOXY100C2 GT; -FERR300L GT; +FERR325T23 GT; +HYDR-500 PO; -INSU100V7 SQ; -IPRA0.2S9 IH; -LANS30CA56 GT; -LEVE100S GT; +LEVE500T9 GT; -LEVO500T90 GT; +LORA10TA7 GT; +NEUTRA PHOS GT; +NITR100C6 PO; +OMEP20TA5 GT; +ONDA4TAB5 GT; -SODI1POW44 GT; -SODI1TAB66 GT; -SPIR25TA6 GT; -TOBR40VI2 HHN
[2025-04-09 18:54] VITALS: BP 147/86; TEMP 98.9; O2SAT 100
== END 2025-04-09 19:11 | disposition home or self-care (01) ==
LOC: ER 14:07
DX: I12.0 Hypertensive chronic kidney disease with stage 5 chronic kidney disease or end stage renal disease (principal); E11.22 Type 2 diabetes mellitus with diabetic chronic kidney disease; N18.6 End stage renal disease; Z79.899 Other long term (current) drug therapy; Z86.73 Personal history of transient ischemic attack (TIA), and cerebral infarction without residual deficits; Z99.2 Dependence on renal dialysis; Z99.11 Dependence on respirator [ventilator] status; Z93.0 Tracheostomy status; Z91.040 Latex allergy status; Z88.2 Allergy status to sulfonamides